=== PATIENT | male | born 1980 | race Caucasian/White ===

== ENCOUNTER 2016-10-29 14:47 | Emergency (ER) | payer BC, OTHER ==
[~2016-10-29] VITALS: Ht 167.6 cm; Wt 94.8 kg
[~2016-10-29 14:47] MED LIST: ATOR10TA PO; CIPR-262 PO; CYCL-343 PO; LORA10CA PO; OMEP10CA2 PO
--- NOTE | 2016-10-29 15:12 | NUR ---
PRESENTS SELF TO ED DUE TO SINUS PRESSURE, HEADACHE, X 2 DAYS NAUSEA. PATIENT [id number]. [email or web address]. AWAITING FOR MD HERNANDEZ
[2016-10-29 15:35] VITALS: BP 141/79
--- NOTE | 2016-10-29 15:35 | NUR ---
Patient discharged to home in stable condition. Written and verbal after care instructions given. Patient verbalizes understanding of instruction.
== END 2016-10-29 15:36 | disposition home or self-care (01) ==
LOC: ER 14:58
DX: J20.9 Acute bronchitis, unspecified (principal); F41.9 Anxiety disorder, unspecified; Z91.018 Allergy to other foods
CPT/HCPCS: A4606; Z7610